=== PATIENT | female | born 1980 | race Caucasian/White ===

== ENCOUNTER 2017-05-22 12:41 | Emergency (ER) | payer MEDICAID ==
[~2017-05-22] VITALS: Ht 160 cm; Wt 61.2 kg
[~2017-05-22 12:41] MED LIST: LORA10TA7 PO; METH4TAB17 PO
--- NOTE | 2017-05-22 13:49 | NUR ---
Female clinical laboratory manager accompanied female patient for (Dr Venegas ).
[2017-05-22 14:22] LABS: *BILIRUBIN,URIN NEGATIVE (NEGATIVE); *BLOOD, URINE NEGATIVE (NEGATIVE); *COLOR,URINE YELLOW (YELLOW); *KETONES,URINE NEGATIVE (NEGATIVE); *PROTEIN,URINE 1+ (NEGATIVE); *UROBILINOGEN,URINE 0.2 E.U./dl (NORMAL); LEUKOCYTE ESTERASE ,URINE TRACE (NEGATIVE); NITRITE, URINE NEGATIVE (NEGATIVE); PH,URINE 8.5 (5.0-8.0); UGLUCOSE NEGATIVE (NEGATIVE)
[2017-05-22 14:34] LABS: *CLARITY,URINE SLIGHTLY HAZY (CLEAR); BACTERIA,URINE FEW /HPF (NONE SEEN)
[2017-05-22 14:35] LABS: MUCUS,URINE MODERATE /LPF (0-FEW); SQUAMOUS EPITHELIAL CELL,UR MODERATE /HPF (NONE SEEN)
--- NOTE | 2017-05-22 15:05 | NUR ---
Patient is resting comfortably in bed with eyes closed, awaiting test results. NAD noted.
[2017-05-22] MEDS ORDERED: CEFTRIAXONE 500 MG VIAL IM ONE (15:15)
[2017-05-22] MEDS ORDERED: METRONIDAZOLE 250 MG TABLET PO ONE (15:15)
--- NOTE | 2017-05-22 15:26 | NUR ---
RX NOTE... ATTEMPTED TO GET 2000MG OF FLAGYL FROM [facility], BUT ONLY 1500 TAKEN SINCE NO MORE DOSE AVAILABLE, CALLED RX FOR 2000 MG, AND RETURNED 1500 BACK.
[2017-05-22] MEDS ORDERED: CEFTRIAXONE 500 MG VIAL ONE (15:28)
[2017-05-22] MEDS ORDERED: METRONIDAZOLE 500 MG TABLET ONE (15:28)
[2017-05-22] MEDS ORDERED: LIDOCAINE HCL 1% 20 ML VIAL ONE (15:28)
--- NOTE | 2017-05-22 15:35 | NUR ---
Patient discharged to home in stable conditon. Written and verbal after care instructions given. Patient verbalizes understanding of instructions.
[2017-05-22 15:36] VITALS: BP 122/60
== END 2017-05-22 15:37 | disposition home or self-care (01) ==
LOC: ER 12:41
DX: A59.9 Trichomoniasis, unspecified (principal); Z88.1 Allergy status to other antibiotic agents; Z91.018 Allergy to other foods
CPT/HCPCS: 87210; 87491; A4663; J0696; J3490

== ENCOUNTER 2017-06-05 20:47 | Emergency (ER) | payer MEDICAID ==
[~2017-06-05] VITALS: Ht 160 cm; Wt 63.5 kg
--- NOTE | 2017-06-05 21:50 | NUR ---
Dr. St at bedside for MSE
--- NOTE | 2017-06-05 22:20 | NUR ---
Mack yao in EDM - 06/05/17 at 2359 by MANUEL pelvic exam completed by Dr. St with Rosa Maria Hernandes as ruth. Sandoval asencio collected and sent.
[2017-06-05 22:43] LABS: *URINE HCG, QUAL NEGATIVE (NEGATIVE)
--- NOTE | 2017-06-05 23:20 | NUR ---
Pelvic exam completed by Dr. St with Rosa Maria Hernandes RN as expressive therapist. Wet mount collected and sent.
--- NOTE | 2017-06-05 23:57 | NUR ---
Pt stable for discharge per Dr. St. Pt given ACI. Pt verbalized understanding of dc instructions. Pt ambulated out of ER with steady gait.
[2017-06-06 00:02] VITALS: BP 121/76
== END 2017-06-05 23:57 | disposition home or self-care (01) ==
LOC: ER 20:47
DX: B37.3 Candidiasis of vulva and vagina (principal); R10.2 Pelvic and perineal pain
CPT/HCPCS: 76856; 84703; 87210; 99285; A4663

== ENCOUNTER 2018-09-19 11:00 | Emergency (ER) | END 2018-09-19 13:41 | disposition home or self-care (01) | DX: R10.84 Generalized abdominal pain (principal); R11.0 Nausea; R43.9 Unspecified disturbances of smell and taste; Z88.1 Allergy status to other antibiotic agents; Z91.018 Allergy to other foods | CPT/HCPCS: 36415; 76856; 80048; 80076; 81001; 83690; 84703; 85025; 96374; 96375; 99284; C9113; J1170; J2270; J2405 ==

== ENCOUNTER 2018-10-15 19:34 | Emergency (ER) | payer MEDICAID ==
[~2018-10-15] VITALS: Ht 160 cm; Wt 63.5 kg
[2018-10-15] MEDS ORDERED: TDAP DIPH,PERTUSS,TET VAC/PF 0.5 ML DISP.SYRIN IM ONE (20:26)
[2018-10-15] MEDS: TDAP DIPH,PERTUSS,TET VAC/PF 0.5 ML DISP.SYRIN IM ONE (20:35)
--- NOTE | 2018-10-15 20:36 | NUR ---
Patient discharged to home in stable conditon. Written and verbal after care instructions given. Patient verbalizes understanding of instructions. PATIENT LEFT WITH STABLE GAIT.
[2018-10-15 20:37] VITALS: BP 107/84
== END 2018-10-15 20:38 | disposition home or self-care (01) ==
LOC: ER 19:36
DX: S61.052A Open bite of left thumb without damage to nail, initial encounter (principal); Z88.1 Allergy status to other antibiotic agents; Z91.018 Allergy to other foods; W53.11XA Bitten by rat, initial encounter; Y93.89 Activity, other specified; Y92.89 Other specified places as the place of occurrence of the external cause; Y99.8 Other external cause status
CPT/HCPCS: 90715; A4663

== ENCOUNTER 2018-12-29 22:59 | Emergency (ER) | payer MEDICAID ==
[~2018-12-29] VITALS: Ht 160 cm; Wt 63.5 kg
--- NOTE | 2018-12-29 23:15 | NUR ---
Pt ambulates to ER with c/o intermittent palpitations w sob x 3 days. No chest pain. Respirations even + unlabored. Pt placed on continuous cardiac monitoring, NSR. SA02 98% room air. No GI/ distress. AAOx4. Will ctm.
[2018-12-30] MEDS ORDERED: IV NORMAL SALINE 1000 ML BAG IV ONE
[2018-12-30 00:16] LABS: BASOPHILS # (AUTO) 0.1 K/uL (0.0-8.0); EOSINOPHILS # (AUTO) 0.1 K/uL (0.0-0.7); EOSINOPHILS % (AUTO) 1.2 % (0.0-7.0); HEMATOCRIT 39.1 % (31.2-41.9); LYMPHOCYTES # (AUTO) 2.2 K/uL (20.0-40.0); MEAN CORPUSCULAR HEMOGLOBIN 28.2 uug (24.7-32.8); MEAN CORPUSCULAR HGB CONC 33 g/dL (32.3-35.6); MEAN CORPUSCULAR VOLUME 85.1 fL (75.5-95.3); MONOCYTES # (AUTO) 0.5 K/uL (2.0-10.0); NEUTROPHILS # (AUTO) 2.6 K/uL (1.8-8.9); NEUTROPHILS % (AUTO) 47.8 % (38.5-71.5); PLATELET COUNT (AUTO) 221 K/uL (179-408); WHITE BLOOD COUNT (AUTO) 5.4 K/uL (3.8-11.8)
[2018-12-30 00:30] LABS: POTASSIUM 3.4 mmol/L (3.5-5.1)
[2018-12-30 00:44] LABS: BILIRUBIN,DIRECT 0.1 mg/dL (0.0-0.2); BILIRUBIN,TOTAL 0.2 mg/dL (0.2-1.0); TOTAL PROTEIN, SERUM 7.2 g/dL (6.4-8.2)
[2018-12-30] MEDS ORDERED: IBUPROFEN 400 MG TABLET PO ONE (00:45)
--- NOTE | 2018-12-30 02:52 | NUR ---
Patient discharged to home in stable conditon. Written and verbal after care instructions given. Patient verbalizes understanding of instructions. Pt ambulated out of ER in stable gait. No acute distress noted. No chest pain/sob. Vital signs stable.
--- NOTE | 2018-12-30 02:52 | NUR ---
IV removed. Catheter intact and site benign. Pressure and 4x4 gauze applied to site. No bleeding noted.
[2018-12-30 02:59] VITALS: BP 105/68
== END 2018-12-30 02:59 | disposition home or self-care (01) ==
LOC: ER 23:00
DX: R00.2 Palpitations (principal); Z88.1 Allergy status to other antibiotic agents; Z91.018 Allergy to other foods
CPT/HCPCS: 36415; 70030-TC; 71045; 84443; 85025; 85730; 86850; 86900; 86901; 93005; A4663; J7030

== ENCOUNTER 2019-09-10 20:36 | Emergency (ER) | payer MEDICAID ==
[~2019-09-10] VITALS: Ht 160 cm; Wt 63.5 kg
[2019-09-10 21:08] LABS: *BILIRUBIN,URIN NEGATIVE (NEGATIVE); *BLOOD, URINE 1+ (NEGATIVE); *COLOR,URINE LIGHT YELLOW (YELLOW); *KETONES,URINE NEGATIVE (NEGATIVE); *UROBILINOGEN,URINE 0.2 E.U./dl (NORMAL); LEUKOCYTE ESTERASE ,URINE TRACE (NEGATIVE); NITRITE, URINE NEGATIVE (NEGATIVE); UGLUCOSE NEGATIVE (NEGATIVE)
[2019-09-10 21:10] LABS: *URINE HCG, QUAL NEGATIVE (NEGATIVE)
[2019-09-10 21:19] LABS: *CLARITY,URINE HAZY (CLEAR)
[2019-09-10 21:20] LABS: BACTERIA,URINE FEW /HPF (NONE SEEN); MUCUS,URINE FEW /LPF (0-FEW); SQUAMOUS EPITHELIAL CELL,UR MODERATE /HPF (NONE SEEN)
[2019-09-10 21:21] LABS: BASOPHILS # (AUTO) 0.1 K/uL (0.0-8.0); BASOPHILS % (AUTO) 1.3 % (0.0-2.0); EOSINOPHILS # (AUTO) 0.1 K/uL (0.0-0.7); EOSINOPHILS % (AUTO) 1.3 % (0.0-7.0); HEMATOCRIT 39.2 % (31.2-41.9); HEMOGLOBIN 12.9 g/dL (10.9-14.3); LYMPHOCYTES # (AUTO) 2.6 K/uL (20.0-40.0); LYMPHOCYTES % (AUTO) 45.7 % (20.5-51.5); MEAN CORPUSCULAR HEMOGLOBIN 28.6 uug (24.7-32.8); MEAN CORPUSCULAR HGB CONC 33 g/dL (32.3-35.6); MEAN CORPUSCULAR VOLUME 87.1 fL (75.5-95.3); MONOCYTES # (AUTO) 0.6 K/uL (2.0-10.0); MONOCYTES % (AUTO) 10.7 % (0.0-11.0); NEUTROPHILS # (AUTO) 2.3 K/uL (1.8-8.9); PLATELET COUNT (AUTO) 211 K/uL (179-408); WHITE BLOOD COUNT (AUTO) 5.7 K/uL (3.8-11.8)
[2019-09-10 21:29] LABS: CARBON DIOXIDE 30 mmol/L (21-32); CHLORIDE 101 mmol/L (98-107); CREATININE 0.8 mg/dL (0.6-1.3); GLUCOSE 86 mg/dL (74-106); POTASSIUM 3.9 mmol/L (3.5-5.1); UREA NITROGEN, BLOOD 16 mg/dL (7-18)
[2019-09-10 21:44] LABS: ALANINE AMINOTRANSFERASE 20 U/L (14-59); ALKALINE PHOSPHATASE 70 U/L (50-136); ASPARTATE AMINOTRANSFERASE 12 U/L (15-37); BILIRUBIN,DIRECT < 0.1 mg/dL (0.0-0.2); BILIRUBIN,TOTAL 0.2 mg/dL (0.2-1.0); LIPASE 132 U/L (73-393); TOTAL PROTEIN, SERUM 7.5 g/dL (6.4-8.2)
[2019-09-10] MEDS: NITROFURANTOIN/NITROFURAN MAC 100 MG CAPSULE PO ONE (22:00)
[2019-09-10] MEDS ORDERED: NITROFURANTOIN/NITROFURAN MAC 100 MG CAPSULE ONE (22:01)
--- NOTE | 2019-09-10 22:04 | NUR ---
Patient discharged to home in stable conditon. Written and verbal after care instructions given. Patient verbalizes understanding of instructions. Patient ambulating with steady gait
[2019-09-10 22:07] VITALS: BP 136/73
== END 2019-09-10 22:04 | disposition home or self-care (01) ==
LOC: ER 20:40
DX: N30.90 Cystitis, unspecified without hematuria (principal); Z88.1 Allergy status to other antibiotic agents; Z91.018 Allergy to other foods
CPT/HCPCS: 36415; 83690; 84703; 85025; 87077; 87086; A4663

== ENCOUNTER 2020-02-18 20:29 | Emergency (ER) | payer MEDICAID ==
[~2020-02-18] VITALS: Ht 160 cm; Wt 63.5 kg
[2020-02-18] MEDS ORDERED: METOCLOPRAMIDE HCL 10 MG/2 ML VIAL IV ONE (21:30)
[2020-02-18] MEDS ORDERED: ACETAMINOPHEN ES 500 MG TABLET PO ONE (21:30)
[2020-02-18] MEDS ORDERED: IV NORMAL SALINE 1000 ML BAG IV ONE (21:30)
[2020-02-18] MEDS ORDERED: diphenhydrAMINE 50 MG/1 ML VIAL IV ONE ×2 (21:30→22:00)
[2020-02-18] MEDS ORDERED: ACETAMINOPHEN ES 500 MG TABLET ONE (21:35)
[2020-02-18] MEDS ORDERED: diphenhydrAMINE 50 MG/1 ML VIAL ONE ×2 (21:35→21:51)
[2020-02-18] MEDS ORDERED: METOCLOPRAMIDE HCL 10 MG/2 ML VIAL ONE (21:35)
[2020-02-18 21:43] LABS: BASOPHILS # (AUTO) 0.1 K/uL (0.0-8.0); BASOPHILS % (AUTO) 1.1 % (0.0-2.0); EOSINOPHILS # (AUTO) 0.1 K/uL (0.0-0.7); EOSINOPHILS % (AUTO) 1.6 % (0.0-7.0); HEMATOCRIT 37.1 % (31.2-41.9); HEMOGLOBIN 12.3 g/dL (10.9-14.3); LYMPHOCYTES # (AUTO) 2.7 K/uL (20.0-40.0); LYMPHOCYTES % (AUTO) 54.1 % (20.5-51.5); MEAN CORPUSCULAR HEMOGLOBIN 27.8 uug (24.7-32.8); MEAN CORPUSCULAR HGB CONC 33 g/dL (32.3-35.6); MONOCYTES # (AUTO) 0.6 K/uL (2.0-10.0); MONOCYTES % (AUTO) 11.7 % (0.0-11.0); NEUTROPHILS # (AUTO) 1.6 K/uL (1.8-8.9); NEUTROPHILS % (AUTO) 31.5 % (38.5-71.5); PLATELET COUNT (AUTO) 193 K/uL (179-408); RED BLOOD CELL COUNT(AUTO) 4.42 MIL/uL (3.63-4.92)
[2020-02-18 21:51] LABS: POTASSIUM 4.4 mmol/L (3.5-5.1)
[2020-02-18] MEDS ORDERED: BENZTROPINE MESYLATE 2 MG/2 ML AMPUL ONE (21:57)
[2020-02-18] MEDS ORDERED: BENZTROPINE MESYLATE 2 MG/2 ML AMPUL IV ONE (22:00)
[2020-02-18 22:02] LABS: ALANINE AMINOTRANSFERASE 23 U/L (14-59); ALKALINE PHOSPHATASE 61 U/L (50-136); ASPARTATE AMINOTRANSFERASE 13 U/L (15-37); BILIRUBIN,DIRECT < 0.1 mg/dL (0.0-0.2); BILIRUBIN,TOTAL 0.1 mg/dL (0.2-1.0); TOTAL PROTEIN, SERUM 6.9 g/dL (6.4-8.2)
[2020-02-18] MEDS ORDERED: IOHEXOL 300MG/ML 100 ML INFUS..BTL ONE (22:31)
[2020-02-18] MEDS ORDERED: IV NORMAL SALINE 250 ML IV ONE (22:31)
[2020-02-18] MEDS ORDERED: SWABABLE VALVE TRANSFER SET EA MC ONE (22:31)
--- NOTE | 2020-02-18 23:05 | NUR ---
Patient in bed, no acute distress noted. VSS
--- NOTE | 2020-02-19 00:08 | NUR ---
Patient discharged to home in stable condition. Written and verbal after care instructions given. Patient verbalizes understanding of instructions. Stressed follow up or return to ER for worsening s/s. Ambulated from ER with stable gait. All belongings with patient. Driven home by taxi.
[2020-02-19 00:10] VITALS: BP 130/77
== END 2020-02-19 00:10 | disposition home or self-care (01) ==
LOC: ER 20:34
DX: R51 Headache (principal); Z87.11 Personal history of peptic ulcer disease
CPT/HCPCS: 36415; 70470; 72125; 80048; 80076; 84702; 85025; 96361; 96374; 96375; 99285; J0515; J1200 ×2; J2765; Q9967; 70450; 70460; A4663; A9150; J7050

== ENCOUNTER 2021-02-09 06:49 | Emergency (ER) | payer MEDICAID ==
[~2021-02-09] VITALS: Ht 160 cm; Wt 68.0 kg
[2021-02-09 07:28] LABS: *BILIRUBIN,URIN NEGATIVE (NEGATIVE); *BLOOD, URINE 2+ (NEGATIVE); *CLARITY,URINE SLIGHTLY CLOUDY (CLEAR); *COLOR,URINE YELLOW (YELLOW); *KETONES,URINE NEGATIVE (NEGATIVE); *UROBILINOGEN,URINE 0.2 E.U./dl (NORMAL); LEUKOCYTE ESTERASE ,URINE TRACE (NEGATIVE); NITRITE, URINE NEGATIVE (NEGATIVE); PH,URINE 5.5 (5.0-8.0); UGLUCOSE NEGATIVE (NEGATIVE)
--- NOTE | 2021-02-09 07:35 | NUR ---
DR Rudolph at the bedside for MSE.
[2021-02-09] MEDS ORDERED: ACETAMINOPHEN ES 500 MG TABLET PO ONE (07:45)
[2021-02-09] MEDS ORDERED: ACETAMINOPHEN ES 500 MG TABLET ONE (07:48)
[2021-02-09 08:09] LABS: BASOPHILS % (AUTO) 0.5 % (0.0-2.0); EOSINOPHILS # (AUTO) 0.1 K/uL (0.0-0.7); HEMATOCRIT 39.9 % (31.2-41.9); HEMOGLOBIN 13.3 g/dL (10.9-14.3); LYMPHOCYTES # (AUTO) 1.6 K/uL (20.0-40.0); LYMPHOCYTES % (AUTO) 37.2 % (20.5-51.5); MEAN CORPUSCULAR HGB CONC 33 g/dL (32.3-35.6); MEAN CORPUSCULAR VOLUME 87.3 fL (75.5-95.3); MONOCYTES # (AUTO) 0.5 K/uL (2.0-10.0); NEUTROPHILS % (AUTO) 48.3 % (38.5-71.5); PLATELET COUNT (AUTO) 219 K/uL (179-408); RED BLOOD CELL COUNT(AUTO) 4.57 MIL/uL (3.63-4.92); WHITE BLOOD COUNT (AUTO) 4.2 K/uL (3.8-11.8)
[2021-02-09 08:50] LABS: BACTERIA,URINE FEW /HPF (NONE SEEN); MUCUS,URINE FEW /LPF (0-FEW); SQUAMOUS EPITHELIAL CELL,UR FEW /HPF (NONE SEEN); URINE AMORPHOUS URATE MANY /HPF
--- NOTE | 2021-02-09 09:49 | NUR ---
Female supervisor respiratory accompanied female patient for ([employer]).
[2021-02-09] MEDS ORDERED: HYDROCODONE/APAP 5-325MG TABLET PO ONE (10:00)
[2021-02-09] MEDS ORDERED: HYDROCODONE/APAP 5-325MG TABLET ONE (10:06)
--- NOTE | 2021-02-09 10:49 | NUR ---
Patient discharged to home in stable condition. Written and verbal after care instructions given. Patient verbalizes understanding of instructions. Stressed follow up or return to ER for worsening s/s.
[2021-02-09 10:53] VITALS: BP 112/68
== END 2021-02-09 10:53 | disposition home or self-care (01) ==
LOC: ER 06:52
DX: O03.9 Complete or unspecified spontaneous abortion without complication (principal); Z88.1 Allergy status to other antibiotic agents; Z91.018 Allergy to other foods; Z87.11 Personal history of peptic ulcer disease
CPT/HCPCS: 36415; 76856; 85025; 87086; A4663; A9150

== ENCOUNTER 2024-06-23 19:22 | Emergency (ER) | payer MEDICAID, OTHER ==
[~2024-06-23] VITALS: Ht 160 cm; Wt 72.6 kg
[2024-06-23] MEDS ORDERED: KETOROLAC TROMETHAMINE 30 MG INJ ONE (22:24)
[2024-06-23] MEDS: KETOROLAC TROMETHAMINE 30 MG INJ IM ONE (22:30)
[2024-06-23] MEDS ORDERED: CYCL10TA9 PO (23:02)
[2024-06-23] MEDS ORDERED: ONDA4TAB11 PO (23:02)
[2024-06-23] MEDS ORDERED: HYDR-3980 PO (23:02)
[2024-06-24 00:01] VITALS: BP 111/67; TEMP 98.6; O2SAT 98
== END 2024-06-23 23:15 | disposition home or self-care (01) ==
LOC: ER 19:23
DX: S16.1XXA Strain of muscle, fascia and tendon at neck level, initial encounter (principal); Z88.1 Allergy status to other antibiotic agents; V89.2XXA Person injured in unspecified motor-vehicle accident, traffic, initial encounter; Y93.89 Activity, other specified; Y92.89 Other specified places as the place of occurrence of the external cause; Y99.8 Other external cause status
CPT/HCPCS: 72125; 99285; 96372; J1885; A4606; A4663